=== PATIENT | female | born 1975 | race Caucasian/White ===

== ENCOUNTER 2024-05-22 10:13 | Emergency (ER) | payer MEDICAID, SELFPAY ==
[2024-05-22 10:32] VITALS: BP 141/84; PULSE 75; TEMP 36.8; O2SAT 99; BMI 24.8
[2024-05-22] MEDS: LIDOCAINE 2% JELLY 10 ML UR (10:43)
--- NOTE | 2024-05-22 11:43 | ED_ITS ---
HPI - Skin/Abscess/Foreign Bdy General Chief complaint: Skin/Abscess/Foreign Body Stated complaint: HEMORRHOID PAIN Time Seen by Provider: 05/22/24 10:38 Mode of arrival: walk-in History of Present Illness HPI narrative: The patient is coming to the ER with rectal pain that she has been having for the last few days since Sunday, he is presenting to us on which is 3 days later, mentioned that she had a history of hemorrhoids when she had her kids more than 10 years ago but never had any problems till Sunday when she started having pain She denies any history of constipation ,she had a bowel movement yesterday but it was painful Related Data Previous Rx's ?Medication ?Instructions ?Recorded hydrocortisone acetate 25 mg 25 mg NM Q12H 2 weeks #12 ea 05/22/24 rectal suppository (Anusol-HC) ibuprofen 600 mg tablet 600 mg PO TID PRN pain #20 tabs 05/22/24 lidocaine 5 % topical cream 1 applic topical QID PRN pain #30 05/22/24 (RectiCare) grams Allergies Allergy/AdvReac Type Severity Reaction Status Date / Time No Known Drug Allergies Allergy Verified 05/22/24 10:32 Review of Systems ROS Status of ROS 10 or more systems reviewed and unremark able except as noted in history and below PFSH PFSH Social History Little interest or pleasure in doing things: not at all Feeling down, depressed, or hopeless: not at all Exam Narrative Exam Narrative: Nurses notes and vital signs reviewed and patient is not hypoxic. General: Well-appearing and in no apparent distress. Skin: Warm, dry, no pallor noted. No rash. Head: Normocephalic, atraumatic. Cardiovascular: Regular Rate and Rhythm without murmur, gallop or rub. Respiratory: No accessory muscle use or respiratory distress. Lungs are clear to auscultation, no wheezing, rales or rhonchi Chest Wall: no tenderness Back: No midline thoracic or lumbar vertebral tenderness. No CVA tenderness Musculoskeletal: normal ROM, no calf or popliteal tenderness, no lower extremity edema/swelling Rectal exam: The patient have a enlarged hemorrhoid that circumferential to the rectum there is no active bleeding and there is no induration or any pus or any fluctuation. There is also no active bleeding Constitutional Vital Signs, click to edit/add: Last Vital Signs Temp 98.2 F 05/22/24 10:32 Pulse 75 05/22/24 10:32 Resp 18 05/22/24 10:32 BP 141/84 05/22/24 10:32 Pulse Ox 99 05/22/24 10:32 O2 Del Method Room Air 05/22/24 10:32 Course Vital Signs Vital signs: Vital Signs Temperature 98.2 F 05/22/24 10:32 Pulse Rate 75 05/22/24 10:32 Respiratory Rate 18 05/22/24 10:32 Blood Pressure 141/84 05/22/24 10:32 Pulse Oximetry 99 05/22/24 10:32 Oxygen Delivery Method Room Air 05/22/24 10:32 Temperature 98.2 F 05/22/24 10:32 Pulse Rate 75 05/22/24 10:32 Respiratory Rate 18 05/22/24 10:32 Blood Pressure 141/84 05/22/24 10:32 Pulse Oximetry 99 05/22/24 10:32 Oxygen Delivery Method Room Air 05/22/24 10:32 MDM - Skin/Abscess/Foreign Bdy MDM Narrative Medical decision making narrative: The patient examination is concerning for high-grade hemorrhoid and it is not typical growth I do not see any active bleeding, but there is no pus or abscess Right now local care with Anusol as well as RectiCare Lidocaine was applied initially for pain The patient also to continue using ibuprofen for pain and warm sitz bath She was referred to general surgery for possible hemorrhoidectomy due to to her high grade hemorrhoids The patient is to follow up with primary care physician in next 2-3 days or to return to the emergency department should any of the signs or symptoms worsen or new symptoms develop. The patient agrees with the following Diagnosis and Treatment plan and the patient will be discharged home. Discharge Plan Discharge Chief Complaint: Skin/Abscess/Foreign Body Clinical Impression: Hemorrhoids Patient Disposition: Home, Self-Care Time of Disposition Decision: 10:58 Condition: Good Prescriptions / Home Meds: New ibuprofen 600 mg tablet 600 mg PO TID PRN (Reason: pain) Qty: 20 0RF hydrocortisone acetate [Anusol-HC] 25 mg suppository 25 mg NM Q12H 14 Days Qty: 12 0RF lidocaine [RectiCare] 5 % cream 1 applic topical QID PRN (Reason: pain) Qty: 30 0RF Print Language: Tamazight Instructions: Hemorrhoids (DC), Sitz Bath (DC) Referrals: Lv Burr DO [Physician] - 1 week Physician,Non-Staff, MD [Primary Care Provider] - 1 week Discharge Date/Time: 05/22/24 11:06
== END 2024-05-22 11:06 | disposition home or self-care (01) ==
PROVIDERS: Emergency Provider Emergency Medicine
DX: K64.9 Unspecified hemorrhoids (principal)
CPT/HCPCS: 99283

== ENCOUNTER 2025-05-04 08:23 | Emergency (ER) | payer BC, SELFPAY ==
[2025-05-04] VITALS (10 sets, daily range): BP systolic 142–163; BP diastolic 76–89; PULSE 57–64; TEMP 36.5; O2SAT 87–98; BMI 21.3
--- NOTE | 2025-05-04 08:31 | ECG_ITS ---
[facility] Test Date: 2025-05-04 Pat Name: DELANO BUSTILLOS Department: Room: - Gender: Female Director Emergency: : 1975 Requested By: [id number] Order Number: [id number] Reading MD: VAMSHI GILES M.D. Measurements Intervals [place] Rate: 53 P: -7 MI: 158 QRS: 83 QRSD: 84 T: 53 QT: 436 QTc: 418 Interpretive Statements 1100 Sinus rhythm 3434 Septal myocardial infarction, age undetermined 9150 abnormal ECG No previous ECG available for comparison Electronically Signed On 05-05-2025 19:54:58 EST by VAMSHI GILES M.D.
--- NOTE | 2025-05-04 08:36 | CT_ITS ---
The [address] [address] Patient Name: DELANO BUSTILLOS MRN: [id number] date: 1975 Sex: F Assigned Patient Location: ER Current Patient Location: ED.MAIN Accession/Order Number: [id number] Exam Date: 05/04/2025 09:18 Report Date: 05/04/2025 09:48 At the request of: KAMERON MANN MD Procedure: CT head/brain wo con CT BRAIN WITHOUT CONTRAST: CLINICAL HISTORY: headache and pressure at the back of the head COMPARISON: None TECHNIQUE: Contiguous axial unenhanced images were obtained through the brain. This CT exam was performed using one or more following dose reduction techniques: Automated exposure control, adjustment of the mA and/or kV according to patient size, or use of iterative reconstruction technique. FINDINGS: The ventricles are normal in size and position. There are no areas of abnormal attenuation. There is no hemorrhage, mass effect or extra-axial collections. There is minor maxillary mucosal thickening. The remaining imaged paranasal sinuses and mastoid air cells are clear. CT/CT head/brain wo con IMPRESSION: NO ACUTE INTRACRANIAL ABNORMALITY. Impression dictated by: Kaley Ulloa M.D. 05/04/2025 9:48 AM Dictation Location: [place] [address] Electronically authenticated by: [id number] Y Date: 05/04/2025 09:48
--- NOTE | 2025-05-04 08:42 | ED.GENADUL1 ---
HPI HPI - General Adult General Chief complaint: Headache Stated complaint: HEAD PRESSURE, VOMITING Time Seen by Provider: 05/04/25 08:31 Source: patient Mode of arrival: walk-in Limitations: no limitations History of Present Illness HPI narrative: The patient is a 50 years old female is coming to the ER with a headache in the back of her head for the last 5 days, she mentioned that she does not usually get headache and she has been using Tylenol for pain with no effect, last night she had some nausea and vomiting 1 time, patient denies any blurry vision no double vision no weakness numbness or any tingling and there is no imbalance when walking The patient does have a history of smoking cigarettes she smokes around a pack of cigarette daily and she denies any history of hypertension Patient denies any other concerns she works as a production welder The patient noticed point of tenderness in the scalp at the occipital area and that where the headache started Related Data Previous Rx's ?Medication ?Instructions ?Recorded diclofenac sodium 75 mg 75 mg PO BID PRN pain #20 tabs 05/04/25 tablet,delayed release orphenadrine citrate 100 mg 100 mg PO BID PRN muscle spasm #20 05/04/25 tablet,extended release tabs Allergies Allergy/AdvReac Type Severity Reaction Status Date / Time No Known Drug Allergies Allergy Verified 05/22/24 10:32 Opioid HPI Opioid Management Most Recent Opioid Data: Last Pain Scale 7 Today, 08:47 Last JUL Pain Assessment Today, 08:47 Review of Systems ROS Status of ROS 10 or more systems reviewed and unremarkable except as noted in history and below PFSH PFSH Social History Little interest or pleasure in doing things: not at all Feeling down, depressed, or hopeless: not at all Exam Narrative Exam Narrative: Nurses notes and vital signs reviewed and patient is not hypoxic. General: Well-appearing and in no apparent distress. Skin: Warm, dry, no pallor noted. No rash. Head: Normocephalic, atraumatic. There is tenderness upon palpation of the posterior scalp mostly just above the mastoid area there is no swelling or any open wound or any signs of trauma Neck: Supple, non-tender. Eye: Pupils are equal, round and EOMI. No scleral icterus. Cardiovascular: Regular Rate and Rhythm without murmur, gallop or rub. Respiratory: No accessory muscle use or respiratory distress. Lungs are clear to auscultation, no wheezing, rales or rhonchi Neurological: A&O x4. No cranial nerve dysfunction observed. No truncal ataxia. Moves all extremities. Sensation intact. Psychiatric: Cooperative and interactive. Normal mood and affect. Constitutional Vital Signs, click to edit/add: Last Vital Signs Temp 97.7 F 05/04/25 08:26 Pulse 64 05/04/25 10:00 Resp 17 05/04/25 10:01 BP 144/86 H 05/04/25 10:01 Pulse Ox 95 05/04/25 08:30 O2 Del Method Room Air 05/04/25 08:26 Course Vital Signs Vital signs: Vital Signs Temperature 97.7 F 05/04/25 08:26 Pulse Rate 61 05/04/25 08:26 Respiratory Rate 20 05/04/25 08:26 Blood Pressure 162/89 H 05/04/25 08:26 Pulse Oximetry 98 05/04/25 08:26 Oxygen Delivery Method Room Air 05/04/25 08:26 Temperature 97.7 F 05/04/25 08:26 Pulse Rate 64 05/04/25 10:00 Respiratory Rate 17 05/04/25 10:01 Blood Pressure 144/86 H 05/04/25 10:01 Pulse Oximetry 95 05/04/25 08:30 Oxygen Delivery Method Room Air 05/04/25 08:26 Medical Decision Making [facility] Narrative Medical decision making narrative: The patient EKG showing sinus rhythm with a heart rate of [address] elevation or depression The patient CBC and chemistry as well as CT of the head showed no acute pathology Her presentation could be secondary to muscular spasm and she was instructed on hydration and after feeling better with treatment in the ER with Toradol and Compazine the patient was discharged home with Voltaren as well as Norflex with instruction to make sure that the equipment is that she wears when she is wielding is not tight on her head Also making sure that she will be stretching and will follow-up with her primary care for further evaluation The patient to follow-up with the primary care within 2 to 3 days and to come back to the ER in case of any worsening of the current symptoms or any new symptoms or concerns Lab Data Labs: Lab Results 05/04/25 Range/Units 08:42 WBC 4.9 (4.0-11.0) 10^3/uL RBC 4.69 (4.20-5.40) 10^6/uL Hgb 14.9 (12.0-16.0) g/dL Hct 43.1 (36.0-48.0) % MCV 91.9 (81.0-99.0) fL MCH 31.8 (26.7-34.0) pg MCHC 34.6 (29.9-35.2) g/dL RDW 12.5 (11.0-15.0) % Plt Count 217 (150-450) 10^3/uL MPV 9.1 L (9.5-13.5) fL Neut % (Auto) 61.1 (43.0-75.0) % Lymph % (Auto) 20.6 (20.5-60.0) % [place] % (Auto) 11.8 (1.7-12.0) % Eos % (Auto) 5.3 (0.9-7.0) % Baso % (Auto) 0.8 (0.2-2.0) % Neut # (Auto) 3.0 (1.4-6.5) 10^3/uL Lymph # (Auto) 1.0 L (1.2-3.8) 10^3/uL [place] # (Auto) 0.6 (0.3-0.8) 10^3/uL Eos # (Auto) 0.3 (0.0-0.7) 10^3/uL Baso # (Auto) 0.0 (0.0-0.1) 10^3/uL Abs Immat Gran (auto) 0.02 (0.00-0.03) 10^3/uL Imm/Tot Granulo (auto) 0.4 (0.0-0.5) % PT 10.2 (9.0-11.6) sec INR 0.97 Sodium 143 (136-145) mmol/L Potassium 4.4 (3.5-5.1) mmol/L Chloride 108 H (98-107) mmol/L Carbon Dioxide 24.8 (21.0-32.0) mmol/L Anion Gap 14.6 BUN 8.0 (7.0-18.0) mg/dL Creatinine 0.60 (0.55-1.02) mg/dL Est GFR ( Amer) >60 (>=60 mL/min/1.73m^2) Est GFR (Non-Af Amer) >60 (>=60 mL/min/1.73m^2) BUN/Creatinine Ratio 13.3 Glucose 93 (74-106) mg/dL Calcium 9.0 (8.5-10.1) mg/dL Total Bilirubin 0.3 (0.2-1.0) mg/dL AST 28 (15-37) U/L ALT 15 (14-59) U/L Alkaline Phosphatase 65 (46-116) U/L Troponin I High Sens <4.0 L (4.0-51.3) pg/mL Total Protein 7.0 (6.4-8.2) g/dL Albumin 3.7 (3.4-5.0) g/dL Globulin 3.3 g/dL Albumin/Globulin Ratio 1.1 Serum HCG, Qual Negative (NEGATIVE) Discharge Plan Discharge Chief Complaint: Headache Clinical Impression: Occipital pain, Headache Patient Disposition: Home, Self-Care Time of Disposition Decision: 10:26 Condition: Good Prescriptions / Home Meds: New diclofenac sodium 75 mg tablet,delayed release (DR/EC) 75 mg PO BID PRN (Reason: pain) Qty: 20 0RF orphenadrine citrate 100 mg tablet extended release 100 mg PO BID PRN (Reason: muscle spasm) Qty: 20 0RF Print Language: Kazakh Instructions: Acute Headache (DC), Muscle Spasm (ED) Referrals: Physician,Non-Staff, MD [Primary Care Provider] - 1 week Discharge Date/Time: 05/04/25 10:40
[2025-05-04] MEDS: KETOROLAC TROMETHAMINE 30 MG/ML VIAL IVP (08:47)
[2025-05-04] MEDS: PROCHLORPERAZINE 10 MG/2 ML VIAL IV (08:47)
[2025-05-04 08:49] LABS: Hematocrit 43.1 % (36.0-48.0); Hemoglobin 14.9 g/dL (12.0-16.0); Immature Granulocytes Abs Auto 0.02 10^3/uL (0.00-0.03); Immature Granulocytes Pct Auto 0.4 % (0.0-0.5); Lymphocytes Absolute Auto 1.0 10^3/uL (1.2-3.8); Mean Corpuscular HGB Conc 34.6 g/dL (29.9-35.2); Mean Corpuscular Hemoglobin 31.8 pg (26.7-34.0); Mean Corpuscular Volume 91.9 fL (81.0-99.0); Platelet Count 217 10^3/uL (150-450); Red Blood Count 4.69 10^6/uL (4.20-5.40); White Blood Count 4.9 10^3/uL (4.0-11.0)
[2025-05-04 09:06] LABS: INR 0.97; Prothrombin Time 10.2 sec (9.0-11.6)
[2025-05-04 09:10] LABS: Alanine Aminotransferase 15 U/L (14-59); Albumin Globulin Ratio 1.1; Albumin Level 3.7 g/dL (3.4-5.0); Alkaline Phosphatase 65 U/L (46-116); Anion Gap 14.6; Aspartate Amino Transferase 28 U/L (15-37); Blood Urea Nitrogen 8.0 mg/dL (7.0-18.0); Calcium 9.0 mg/dL (8.5-10.1); Carbon Dioxide 24.8 mmol/L (21.0-32.0); Chloride 108 mmol/L (98-107); Estimated GFR (African America >60 (>=60 mL/min/1.73m^2); Estimated GFR (Non-African Ame >60 (>=60 mL/min/1.73m^2); Globulin 3.3 g/dL; Glucose 93 mg/dL (74-106); Potassium 4.4 mmol/L (3.5-5.1); Sodium 143 mmol/L (136-145); Total Protein 7.0 g/dL (6.4-8.2)
--- OUTSIDE RECORDS SUMMARY | 2025-05-04 09:34 | XMS_ITS | CCD ---
Author Organization [facility] Care Team Providers Care Glue Drier Operator Name Role Phone ANALY, DR GARCIA Admitting Unavailable KARASIK, DR GARCIA Attending Unavailable KARASIK, DR GARCIA Consulting Unavailable WEST, DR YASH Steele Consulting Unavailable KARASIK, DR GARCIA Admitting Unavailable KARASIK, DR GARCIA Attending Unavailable KARASIK, DR GARCIA Consulting Unavailable KARASIK, DR GARCIA Consulting Unavailable KARASIK, DR GARCIA Admitting Unavailable KARASIK, DR GARCIA Attending Unavailable DICKSONPAOLA Consulting Unavailable DICKSON, PAOLA Admitting Unavailable DICKSON, PAOLA Attending Unavailable DICKSONPAOLA Consulting Unavailable KARASIK, DR GARCIA Admitting Unavailable MORRISON, DR ABDELRAHMAN Quijano Primary Care Unavailable KARASIK, DR GARCIA Attending Unavailable KARASIK, DR GARCIA Admitting Unavailable KARASIK, DR GARCIA Attending Unavailable KARASIK, DR GARCIA Consulting Unavailable KARASIK, DR GARCIA Admitting Unavailable KARASIK, DR GARCIA Attending Unavailable MORRISON, DR ABDELRAHMAN Quijano Primary Care Unavailable ASHWINGERMAN Consulting Unavailable KARASIK, DR GARCIA Admitting Unavailable MORRISON, DR ABDELRAHMAN Quijano Primary Care Unavailable KARASIK, DR GARCIA Attending Unavailable KARASIK, DR GARCIA Consulting Unavailable AGUBOSIMTAPAN Consulting Unavailable KARASIK, DR GARCIA Procedure Practitioner Unava MEG Martell Consulting Unavailable MORRISON, DR ABDELRAHMAN Quijano Primary Care Unavailable KARASIK, DR GARCIA Admitting Unavailable KARASIK, DR GARCIA Attending Unavailable KARASIK, DR GARCIA Consulting Unavailable ZIEBER, DR PAM Goodwin Consulting Unavailable KARASIK, DR GARCIA Admitting Unavailable KARASIK, DR GARCIA Attending Unavailable KARASIK, DR GARCIA Consulting Unavailable FAB COLLIER Primary Care Physician Guillermo Gonzalez Attending Unavailable Allergies Allergy ClassificationReported Allergen(s)Allergy TypeDate of OnsetReaction(s) Facility (1 source)MorphineDrug Oygnohq05-14-7695Rtv [facility] Repository (1 source)Morphine; Translations: [morphine]Drug AllergyWeal (disorder)[facility] Medications Current Medications MedicationDrug Class(es)DatesSig (Normalized)Sig (Original)hydrocortisone acetate 25 mg rectal suppository (1 source)CorticosteroidStart: 03-11-2025 End: 27-98-4518vous 25 mg rectal route twice dailyAnusol-HC 25 mg rectal suppository 25 mg = 1 supp, Rectal, BID, X 7 day(s), # 14 supp, Refills(s) 0, Pharmacy: [facility] #[id number], 159.5, cm, 03/11/25 17:54:00 EDT, Height/Length Dosing, 58.3, kg, 03/11/25 17:54:00 EDT, Weight Dosing Start Date: 03/11/25 Stop Date: 03/18/25 Status: Ordered Quantity: 14.0 Unit: supp Repeat number: 1 Indications: Residual hemorrhoidal skin tags; Body mass index [BMI] 22.0-22.9, adult; Rash and other nonspecific skin eruption;nystatin 501424 unt/ml topical cream (1 source)Polyene AntifungalStart: 03-11-2025 End: 50-47-3240yzequtbu Top 100,000 units/g Crm 15 gram 1 tamy, Topical, BID for 14 day(s), 60 gm, Refill(s) 0, apply to bilateral axilla, and external buttock, [facility] #[id number], 159.5, cm, 03/11/25 17:54:00 EDT, Height/Length Dosing, 58.3, kg, 03/11/25 17:54:00 EDT, Weight Dosing Start Date: 03/11/25 Stop Date: 03/25/25 Status: Ordered Quantity: 60.0 Unit: g Repeat number: 1 Indications: Residual hemorrhoidalskin tags; Body mass index [BMI] 22.0-22.9, adult; Rash and other nonspecific skin eruption; Problems Problem ClassificationProblemDateDocumented DateEpisodic/ChronicAbdominal pain (4 sources)Pelvic and perineal pain; Translations: [PELVIC AND PERINEAL PAIN] Onset: 65-86-7813KgmxbxorMjtopnsphx and other anemia (1 source)Anemia, unspecified; Translations: [ANEMIA UNSPECIFIED]Onset: 18-81-2711EomedautDkazhblzkdq (1 source)Residual hemorrhoidal skin tags; Translations: [Residual hemorrhoidal skin tags]Onset: 00-96-7632VqzvwwprLxjyhyuarzcti and screening for infectious disease (1 source)Encounter for screening for human papillomavirus (HPV); Translations: [ENC SCREENING HUMAN PAPILLOMAVIRUS]Onset: 05-65-9747WkakkqjsHfmnyvypapoq diseases of female pelvic organs (1 source)Female pelvic peritoneal adhesions (postinfective); Translations: [FE PELV PERITON ADHES POSTINFECTIVE]Onset: 98-20-8356IpbpfsitVkosarbiy disorders (5 sources)Excessive and frequent menstruation with regular cycle; Translations: [EXCESS FREQ MENSTRUATION W/REG CYCL]Onset: 76-71-3378MkdjpejPvsj disorders (1 source)Major depressive disorder, single episode, unspecified; Translations: [SHEBA DEPRESS D/O SINGLE EPIS UNS]Onset: 31-56-2394CvjmcssHvfpo female genital disorders (1 source)Unspecified dyspareunia; Translations: [UNSPECIFIED DYSPAREUNIA]Onset: 78-99-9564ZmugrymGkecm female genital disorders (1 source)Abnormal uterine and vaginal bleeding, unspecified; Translations: [ABNORMAL UTERINE VAGINAL BLEED UNS]Onset: 63-68-1646LpqhtcjSzvnd female genital disorders (1 source)Hypertrophy of uterus; Translations: [HYPERTROPHY OF UTERUS]Onset: 03-08-0330TknqyacxFzmyw female genital disorders (1 source)Dysplasia of cervix uteri, unspecified; Translations: [DYSPLASIA CERVIX UTERI UNSPECIFIED]Onset: 91-21-8980NghdjoazUodnv screening for suspected conditions (not mental disorders or infectious disease) (8 sources)Encounter for screening mammogram for malignant neoplasm of breast; Translations: [Encounter for screening for malignant neoplasm of cervix]Onset: 29-83-9417PqlqsrdyTwdvn skin disorders (1 source)Eruption; Translations: [Rash and other nonspecific skin eruption] Onset: 79-70-7059IwbaovmtTnvdwqoy codes; unclassified (1 source)Other specified postprocedural states; Translations: [OTH SPECIFIED POSTPROCEDURAL STATES]Onset: 20-59-7842TvztlmwpJizgrcdi codes; unclassified (1 source)Family history of malignant neoplasm of breast; Translations: [FAMILY HX MALIG NEOPLASM OF BREAST]Onset: 57-67-4783KqkjeoxxXwlntlbn codes; unclassified (1 source)Family history of malignant neoplasm of trachea, bronchus and lung; Translations: [FAM HX MALIG NEOPLSM TRACH BRON LNG]Onset: 77-33-8427Kkctfmqz Residual codes; unclassified (1 source)Family history of malignant neoplasm of other organs or systems; Translations: [FAM HX MALIG NEOPLASM OTH ORGN/SYS]Onset: 87-58-0887Hppckqrm Residual codes; unclassified (1 source)Body mass index 20-24 - normal; Translations: [Body mass index (BMI) 22.0-22.9, adult]Onset: 22-53-2967VimxewzpLwarybpo codes; unclassified (1 source)Tobacco apuw60-21-3086LwsjjwgaJuxyfyygz-swcjzro disorders (2 sources)Nicotine dependence, cigarettes, uncomplicated; Translations: [Tobacco dependence, continuous]Onset: 563542-56-0831EnlazmnMzdqegmfdlwy (1 source)CONTACT W/AND (SUSP) EXPOS COVID-19; Translations: [CONTACT W/AND (SUSP) EXPOS COVID-19]Onset: 11-22-2021 Results Test NameValueInterpretationReference RangeFacilityAmbulatory Visit Summaryon 41-15-2595Qypvssrwtd Visit SummaryAmbulatory Visit Summary BUSTILLOS DELANO M :1975 Visit Date:03/11/2025 Ambulatory Visit Instructions Your Diagnosis External hemorrhoids Skin rash BMI 22.0-22.9, adult Your Care Team Attending Physician - Carlos GLEASON, Guillermo Eller Primary Care Physician - FAB COLLIER This Is Your Medications List hydrocortisone topical (Anusol-HC 25 mg rectal suppository) nystatin topical (nystatin Top 100,000 units/g Crm 15 gram) Discharge Vitals Temperature (Oral) 36.6 ???C Heart Rate (Peripheral) 87 Respiratory Rate 18 Blood Pressure 120/86 Height 159.5 cm Height 63 in Weight 58.3 kg Weight 128.529 lb BMI 22.92 What to do next You Need to Schedule the Following Appointments Follow Up with FAB COLLIER When: Where: [address] [facility], [address] [place] [address]- Medications What How Much When Why Instructions New hydrocortisone topical (Anusol-HC 25 mg rectal suppository) 1 Suppositories By rectum 2 times aday External hemorrhoids Skin rash BMI 22.0-22.9, adult Duration: 7 Days Pickup at [facility]/pharmacy #[id number] New nystatin topical (nystatin Top 100,000 units/ g Crm 15 gram) 1 Application Topical 2 times a day External hemorrhoids Skin rash BMI 22.0-22.9, adult Duration: 14 Days apply to bilateral axilla, and external buttock Pickup at [facility]/pharmacy #[id number] [id number] [address], [place] [id number] [phone] Allergies morphine (Hives) Patient Survey You may receive a survey via text or e-mail asking about your office visit. Please share your experience with us by completing your survey. We appreciate your feedback and thank you for choosing us for your care. Education Materials Jock Itch Jock itch is an itchy rash in the groin and upper thigh area. It is a skin infection that is causedby a type of germ (fungus). The rash usually goes away in 2???3 weeks with treatment. What are the causes? This condition may be caused by: ??? Touching a fungal infection elsewhere on your body, such as athlete's foot, and then touching your groin area. ??? Sharing towels or clothing, such as socks or shoes, with someone who has a fungal infection. What increases the risk? This condition is most common in men and adolescent boys. You are also more likely to develop the condition if you: ??? Are in a hot, humid climate. ??? Wear tight-fitting clothes or wet bathing suits for a long time. ??? Play sports. ??? Are overweight. ??? Have diabetes. ??? Have a weakened body defense system (immune system). ??? Sweat a lot. What are the signs or symptoms? Symptoms of this condition include: ??? A red, pink, or brown rash in the groin area. ? There may be blisters. ? The rash may spread to your thighs, the opening between the butt (anus), and the butt. ??? Dry and scaly skin on or around the rash. ??? Itchiness. How is this treated? Treatment for this condition may include: ??? Medicine to kill the fungus (antifungal). This may be one of the following: ? Skin cream. ? Ointment. ? Powder. ? Medicine that you take by mouth. ??? Skin cream or ointment to reduce itching. ??? Lifestyle changes, such as wearing looser clothing and caring for your skin. Follow these instructions at home: Skin care ??? Use skin creams, ointments, or powders exactly as told by your doctor. ??? Wear clothes that are loose. Clothes should not rub against your groin area. Men should wear boxer shorts or loose underwear. ??? Keep your groin area clean and dry. ? Change your underwear every day. ? Change out of wet bathing suits as soon as you can. ? After bathing, use a different towel to dry your groin area. Dry the area gently and completely. ??? Avoid hot baths and showers. Hot water can make itching worse. ??? Do not scratch the area. General instructions ??? Take and apply ynmh-sfn-snperga and prescription medicines only as told by your doctor. ??? Do not share towels or clothing with other people. ??? Wash your hands often with soap and water for at least 20 seconds, especially after touching your groin area. If you cannot use soap and water, use hand bottom brusher. ??? When at the gym: ? Always wear shoes, especially in the shower and around the swimming pool. ? Keep any cuts covered. ? Clean any mats or equipment before using them. ? Shower as soon as you are done working out. ??? Keep all follow-up visits. Contact a doctor if: ??? Your rash: ? Gets worse. ? Does not get better after 2 weeks of treatment. ? Spreads. ? Comes back after treatment is done. ??? You have a fever. ??? You have new or more redness, swelling, or pain around your rash. ??? You have fluid, blood, or pus coming from your rash. Summary ??? Jock itch is an itchy rash. I (more content not included)...[facility] Medicine Office/Clinic Noteon [id number] Medicine Office/Clinic NoteFami Medicine Office/Clinic Note Chief Complaint rash bilateral arm pits, hemorroids HPI Staff 50 year old female presents with hemorrhoids, itchy onset- 4 month OTC- pep pads, Epsom salt History of Present Illness I have reviewed and verified the staff HPI to be accurate for this encounter. Portions of this record have been created with voice recognition software. Occasional wrong-word or???wjaiw-r-lnto??? substitutions may have occurred due to the inherent limitations of voice recognition software. 50 yo female presents today with cc of hemorrhoids. She states rectal itching and irritation x 4 months duration. Has been using OTC pep pads, and epsom salt baths. Patient states that she is been showering after every bowel movement. States known external hemorrhoids believes after childbirth denies any major history constipation states last bowel movement was this morning was normal for her. Patient states she tries her best to keep everything very clean states she has had itching now over the past 4 months duration which she states she feels like it is getting worse. No abdominal pain no black or tarry stools blood in the stool no dysuria hematuria urinary urgency or frequency. No history of thrombosed hemorrhoids. Denies rectal pain. States more of rectal itching, also notes a rash which started about a week ago in bilateral armpits or axilla region. 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 States the rash underneath bilateral axilla regions is itching not painful it has never weep to her seat. It is not blistering states it is thick raised slightly erythematous. She does not currently have a primary care provider. She denies any recent medication changes no recent antibiotics no new soaps lotions detergents. She has no other concerns at this time. Review of Systems PHQ Score Initial Depression Screen Score: 0 SCORE ROS negative unless otherwise stated in HPI. Physical Exam Vitals & Measurements T: 36.6 ???C(Oral) HR: 87(Peripheral) RR: 18 BP: 120/86 SpO2: 95% HT: 159.5 cm HT: 63 in WT: 58.3 kg WT: 128.529 lb BMI: 22.92 General:Well developed, well nourished, in no acute distress Eyes:not assessed Ears:not assessed Nose:not addressed Mouth:not assessed Neck:not assessed Lungs:Lung sounds are clear bilaterally. No wheezing, rhonchi, or crackles on exam. Cardio:S1, S2, regular rhythm. No murmurs, gallops, or rubs. Abdomen:not assessed : medical technician Lucille at bedside as commutator presser for patient vaginal examination. Patient has multiple large external hemorrhoids which are circumferential around the rectum region cannot visualize the rectum due to these external hemorrhoids. Otherwise patient has normal external genitalia she does have a rash which is at the top of the crease of the buttock just above the rectal area which extends on both the right and left buttock regions this is a red slightly thickened slightly scaly area concerning for a candidal versus fungal type rash most likely causing patient's itching. The external hemorrhoids are not erythematous they are not acutely tender no concern for thrombosed hemorrhoids or infectious process. Musculoskeletal:not assessed Extremity:not assessed Neurologic:not assessed Skin: Patient has a rash of bilateral axilla regions both measuring about 3 cm x 4 cm thick and slightly scaly erythematous pruritic per patient. Concern for candidal versus fungal rash. No surrounding erythema warmth or concern for cellulitis or infection no underlying induration or concern for skin abscess. Mental Status:Alert and oriented x3. Normal mood and affect Assessment/Plan I spoke with patient in regards to her external hemorrhoids. I believe that more of the what she describes as rectal itching is not coming from the hemorrhoids themselves but from the skin rash that she has which is either candidal versus fungal on examination today. Given her occupation that wouldmake sense. I discussed with patient still treating the external hemorrhoids with Anusol suppository which is a steroid in hopes to try to shrink the hemorrhoids and help with itching. In regards to the skin rash of bilateral axilla regions and also in the buttock region will cover initially with nystatin topical cream twice daily x 2 weeks duration patient understands if she is not having any imp rovement in about a week to 10 days of using that cream to contact the office back we will change it to an antifungal cream and refer to dermatology. Patient is understanding and agreement she does not currently have a PCP is encouraged to find one and schedule new patient appointment otherwise mayreturn if needed. Patient agrees and understands plan. 1. External hemorrhoids (K64.4: Residual hemorrhoidal skin tags) See above. Ordered: hydrocortisone topical, 25 mg = 1 supp, Rectal, BID, X 7 day(s), # 14 supp, Refil (more content notincluded)...[facility] HospitalComment on above:Result Comment: Electronically Signed By: Carlos GLEASON, Guillermo Eller\.br\Date and Time Signed: 03/11/2518:20 EDTBUNon 40-08-4952Nrbj nitrogen [Mass/Vol]8.0 mg/dLNormal7.0-18.0[facility] HospitalComment on above:Performed By: #### BUN, CREA #### [facility] [address] [place] [address] Dr. Ace Davalos AUTO DIFFon [id number] #0.0 103/ulNormal0.0-0.1[facility] HospitalComment on above:Performed By: #### CBC #### [facility] [address] [place] [address] Dr. Ace Hookssophils/100 WBC (Bld)0.2 %Normal0.2-2.0[facility] Comment on above:Performed By: #### CBC #### [facility] [address] [place] [address] Dr. Ace Fisher #0.0 103/ulNormal0.0-0.7The [facility] HospitalComment on above: Performed By: #### CBC #### [facility] [address] [place] [address] Dr. Ace Lyonsosinophils/100 WBC (Bld)0.0 %Critically low0.9-7.0The [facility] HospitalComment on above:Performed By: #### CBC #### [facility] [address] [place] [address] Dr. Ace Lyonsrythrocyte distribution width (RBC) [Ratio]17.1 %Critically high 11.0-15.0The [facility] HospitalComment on above:Performed By: #### CBC #### [facility] [address] [place] [address] Dr. Ace De JesusHematocrit (Bld) [Volume fraction]29.4 %Critically low36.0-48.0 The [facility] HospitalComment on above:Performed By: #### CBC #### [facility] [address] [place] [address] Dr. Ace De JesusHemoglobin (Bld) [Mass/Vol]9.0 g/dLCritically low12.0-16.0The [facility] HospitalComment on above:Performed By: #### CBC #### [facility] [address] [place] [address] Dr. Ace Longo #0.06 10e3/ulCritically high0.00-0.03[facility] Comment on above:Performed By: #### CBC #### [facility] [address] [place] [address] Dr. Ace Longo %0.5 %Normal0.0-0.5The [facility] HospitalComment on above: Performed By: #### CBC #### [facility] [address] [place] [address] Dr. Ace BunnH #1.8 103/ulNormal1.2-3.8The [facility] HospitalComment on above:Performed By: #### CBC #### [facility] [address] [place] [address] Dr. Ace Dhaliwalmphocytes/100 WBC (Bld)14.0 %Critically low20.5-60.0The [facility] HospitalComment on above:Performed By: #### CBC #### [facility] [address] [address] [address] Ace Laura DIFF REQNONormalThe [facility] HospitalComment on above: Performed By: #### CBC #### [facility] [address] [place] [address] Dr. Ace Mendoza (RBC) [Entitic mass]23.3 pgCritically low26.7-34.0The [facility] HospitalComment on above:Performed By: #### CBC #### [facility] [address] [place] [address] Dr. Ace Mendoza (RBC) [Mass/Vol]30.6 g/kTOzmvkn81.9-35.2The [facility] HospitalComment on above:Performed By: #### CBC #### [facility] [address] [place] [address] Dr. Ace Mendoza (RBC) [Entitic vol]76.2 fLCritically low81.0-99.0The [facility] HospitalComment on above:Performed By: #### CBC #### [facility] [address] [place] [address] Dr. Ace Voss #0.8 103/ulNormal0.3-0.8The [facility] HospitalComment on above:Performed By: #### CBC #### [facility] [address] [place] [address] Dr. Ace Ovallesocytes/100 WBC (Bld)6.1 %Normal1.7-12.0[facility] Comment on above:Performed By: #### CBC #### [facility] [address] [place] [address] Dr. Ace Neumann #10.3 103/ulCritically high1.4-6.5[facility] Comment on above:Performed By: #### CBC #### [facility] [address] [place] [address] Dr. Ace Palaciosutrophils/100 WBC (Bld)79.2 %Critically high43.0-75.0The [facility] HospitalComment on above:Performed By: #### CBC #### [facility] [address] [address] [address] Ace Jeffrieslet mean volume (Bld) [Entitic vol]9.5 fLNormal9.5-13.5[facility] on above:Performed By: #### CBC #### [facility] [address] [place] [address] Dr. Ace De JesusPLT247 103/unYonxms091-652Jut [facility] HospitalComasp[facility] on above: Performed By: #### CBC #### [facility] [address] [place] [address] Dr. Ace De JesusRBC3.86 106/ulCritically low4.20-5.40[facility] on above:Performed By: #### CBC #### [facility] [address] [place] [address] Dr. Ace De JesusWBC13.0 103/ulCritically high4.0-11.0The [facility] HospitalComment on above:Performed By: #### CBC #### [facility] [address] [place] [address] Dr. Ace De JesusCREATININEon [id number] [Mass/Vol]0.74 mg/dLNormal 0.55-1.02The [facility] HospitalComasp[facility] on above:Performed By: #### BUN, CREA #### [facility] [address] [place] [address] Dr. Ace LyonsGFR-AF SALVADOREAN>60Normal>=60The [facility] HospitalComasp[facility] on above:Performed By: #### BUN, CREA #### [facility] [address] [place] [address] Dr. Ace LyonsGFR-NON AF SALVADOREAN>60Normal>=60[facility] on above:Performed By: #### BUN, CREA #### [facility] [address] [place] [address] Dr. Ace De JesusPREGNANCY URon [id number], QUALNegativeNormalNEGATIVEThe [facility] HospitalComment on above:Performed By: #### TNS #### [facility] [address] [place] [address] Dr. Ace Davalos AUTO DIFFon [id number] #0.0 103/ulNormal0.0-0.1The [facility] HospitalComment on above:Performed By: #### TNS #### [facility] [address] [place] [address] Dr. Ace De JesusBasophils/100 WBC (Bld)0.5 %Normal0.2-2.0[facility] Comment on above:Performed By: #### TNS #### [facility] [address] [place] [address] Dr. Ace Fisher #0.1 103/ulNormal0.0-0.7The [facility] HospitalComment on above: Performed By: #### TNS #### [facility] [address] [place] [address] Dr. Ace Lyonsosinophils/100 WBC (Bld)1.7 %Normal0.9-7.0[facility] Comment on above:Performed By: #### TNS #### [facility] [address] [place] [address] Dr. Ace Lyonsrythrocyte distribution width (RBC) [Ratio]16.7 %Critically high 11.0-15.0The [facility] HospitalComment on above:Performed By: #### TNS #### [facility] [address] [place] [address] Dr. Ace De JesusHematocrit (Bld) [Volume fraction]37.8 %Ucrwxg83.0-48.0The [facility] HospitalComment on above:Performed By: #### TNS #### [facility] [address] [place] [address] Dr. Ace De JesusHemoglobin (Bld) [Mass/Vol]11.5 g/dLCritically low12.0-16.0The [facility] HospitalComment on above:Performed By: #### TNS #### [facility] [address] [place] [address] Dr. Ace Longo #0.02 10e3/ulNormal0.00-0.03The [facility] HospitalComment on above:Performed By: #### TNS #### [facility] [address] [place] [address] Dr. Ace Longo %0.3 %Normal0.0-0.5The [facility] HospitalComaspirus [facility] hospital on above: Performed By: #### TNS #### [facility] [address] [place] [address] Dr. Ace Hunt #2.1 103/ulNormal1.2-3.8The [facility] HospitalComment on above:Performed By: #### TNS #### [facility] [address] [place] [address] Dr. Ace Bunnhocytes/100 WBC (Bld)28.6 %Xfboqa70.5-60.0The [facility] HospitalComaspirus [facility] on above:Performed By: #### TNS #### [facility] [address] [place] [address] Dr. Ace JenkinsUAL DIFF REQNONormalThe [facility] HospitalComment on above: Performed By: #### TNS #### [facility] [address] [place] [address] Dr. Ace Mendoza (RBC) [Entitic mass]23.1 pgCritically low26.7-34.0[facility] on above:Performed By: #### TNS #### [facility] [address] [place] [address] Dr. Ace Mendoza (RBC) [Mass/Vol]30.4 g/kMCcjqyj56.9-35.2The [facility] HospitalComment on above:Performed By: #### TNS #### [facility] [address] [place] [address] Dr. Ace Mendoza (RBC) [Entitic vol]75.9 fLCritically low81.0-99.0The [facility] HospitalComment on above:Performed By: #### TNS #### [facility] [address] [address] [address] Ace Voss #0.5 103/ulNormal0.3-0.8The [facility] HospitalComment on above:Performed By: #### TNS #### [facility] [address] [place] [address] Dr. Ace Ovallesocytes/100 WBC (Bld)6.7 %Normal1.7-12.0[facility] Comment on above:Performed By: #### TNS #### [facility] [address] [place] [address] Dr. Ace Neumann #4.6 103/ulNormal1.4-6.5The [facility] HospitalComment on above:Performed By: #### TNS #### [facility] [address] [place] [address] Dr. Ace Palaciosutrophils/100 WBC (Bld)62.2 %Vmikcj51.0-75.0The [facility] HospitalComment on above:Performed By: #### TNS #### [facility] [address] [place] [address] Dr. Ace Zhao mean volume (Bld) [Entitic vol]8.6 fLCritically low 9.5-13.5The [facility] HospitalComment on above:Performed By: #### TNS #### [facility] [address] [place] [address] Dr. Ace De JesusPLT253 103/nxJkjahq500-721Kfz [facility] HospitalComment on above: Performed By: #### TNS #### [facility] [address] [place] [address] Dr. Ace De JesusRBC4.98 106/ulNormal4.20-5.40The [facility] HospitalComment on above:Performed By: #### TNS #### [facility] [address] [place] [address] Dr. Ace De JesusWBC7.5 103/ulNormal4.0-11.0The [facility] HospitalComment on above: Performed By: #### TNS #### [facility] [address] [place] [address] Dr. Ace Lee-19 PCR (CVDTB)on 44-30-0869RNIF-CoV-2 (COVID-19) RNA CANDIE+probe Ql (Unsp spec)Not detectedNormalNOT DETECTEDTwin City Hospital Comment on above:Result Comment: This test is not yet approved or cleared by the [place] FDA. When there are no FDA-approved or cleared tests available, and other criteria are met, FDA can make tests available under an emergency access mechanism called an Emergency Use Authorization (EUA). The EUA for this test is supported by the [place] of Health and Human Service's (HHS's) declaration that circumstances exist to justify the emergency use of in vitro diagnostics for the detection and/or diagnosis of the virus that causes COVID- 19. This EUA will remain in effect (meaning this test can be used) for the duration of the COVID-19 declaration justifying emergency of IVDs, unless it is terminated or revoked by FDA (after which the test may no longer be used). When diagnostic testing is negative, the possibility of a false negative should be considered in the context of a patient's recent exposures and the presence of clinical signs and symptoms consistent with SARS-CoV-2.Performed By: #### CVDTBH #### [facility] [address] [place] [address] Dr. Ace De JesusTYPE AND SCREENon 19-81-2961LLWG AND SCREENNegativeNormalThe [facility] HospitalComment on above:Performed By: #### TNS #### [facility] [address] [place] [address] Dr. Ace De JesusPREGNANCY URon 02-81-4873MKZZWMMEX, QUALNegativeNormalNEGATIVETwin City HospitalComment on above:Performed By: #### PREGU #### [facility] [address] [place] [address] Dr. Ace Lee-19 PCR (CVDTB)on 29-79-3807FWNB-CoV-2 (COVID-19) RNA CANDIE+probe Ql (Unsp spec)Not detectedNormalNOT DETECTEDTwin City Hospital Comment on above:Result Comment: When diagnostic testing is negative, the possibility of a false negative should be considered in the context of a patient's recent exposures and the presence of clinical signs and symptoms consistent with SARS-CoV-2. This test is not yet approved or cleared by the [place] FDA. When there are no FDA-approved or cleared tests available, and other criteria are met, FDA can make tests available under an emergency access mechanism called an Emergency Use Authorization (EUA). The EUA for this test is supported by the [place] of Health and Human Service's declaration that circumstances exist to justify the emergency use of in vitro diagnostics for the detection and/or diagnosis of the virus that causes COVID-19. This EUA will remain in effect for the duration of the COVID-19 declaration justifying emergency of IVDs, unless it is terminated or revoked by the FDA (after which the test may no longer be used).Performed By: #### CVDTBH #### [facility] [address] [place] [address] Dr. Ace De JesusMG MAMM SCREEN 3D JOELLE CADon [id number] MAMM SCREEN 3D JOELLE CAD Patient: DELANO BUSTILLOS Exam Date: 09/22/2021 : 1975 Gender:F Ordering : DR RADHA BECKFORD . Admission #: [id number] Family : Order #: [id number] CLICK HERE TO VIEW EXAM RADIOLOGY REPORT PROCEDURE: MAMMOGRAM SCREENING 3D BILATERAL CAD COMPARISON: MG MAMM JOELLE DIAG W CAD DIG, 11/05/2014. MG MAMM JOELLE DIAG W CAD DIG, 12/20/2015. INDICATIONS: Screening mammography Calculator Name NCI Breast Cancer Risk Assessment Tool 5 Year Breast Cancer Risk 0.70% Lifetime Breast Cancer Risk 8.70% Personal Breast Cancer No Personal Ovarian Cancer No Treatments None Family Cancers Grandfather-paternal with lung cancer at age 42; Grandfather-maternal with bone cancer at age 76; Grandmother-maternal with lung cancer at age 73; Aunt-paternal with breast cancer at age 45; Aunt-paternal with breast cancer at age 45. LOCATION: [facility] BREAST COMPOSITION: Extremely dense, which lowers the sensitivity of mammography. FINDINGS: DIAGNOSTIC CATEGORY 2--BENIGN FINDING: RIGHT BREAST: No significant suspicious finding. LEFT BREAST: No significant suspicious finding. RECOMMENDATIONS: ROUTINE MAMMOGRAM AND CLINICAL EVALUATION IN 12 MONTHS. PLEASE NOTE: A NORMAL MAMMOGRAM DOES NOT EXCLUDE THE POSSIBILITY OF BREAST CANCER. A CLINICALLY SUSPICIOUS PALPABLE LUMP SHOULD BE BIOPSIED. Dictated by: Yash Strickland MD on 09/22/2021 at 15:43 Approved by: Yash Strickland MD on 09/22/2021 at 15:48No[facility] AUTO DIFFon 47-27-1320JJIF #0.0 103/ulNormal0.0-0.1The [facility] HospitalComment on above:Performed By: #### TNS #### [facility] [address] [place] [address] Dr. Ace De JesusBasophils/100 WBC (Bld)0.5 %Normal0.2-2.0[facility] Comment on above:Performed By: #### TNS #### [facility] [address] [place] [address] Dr. Ace Fisher #0.2 103/ulNormal0.0-0.7The [facility] HospitalComment on above: Performed By: #### TNS #### [facility] [address] [place] [address] Dr. Ace Lyonsosinophils/100 WBC (Bld)2.5 %Normal0.9-7.0[facility] Comment on above:Performed By: #### TNS #### [facility] [address] [place] [address] Dr. Ace Lyonsrythrocyte distribution width (RBC) [Ratio]15.6 %Critically high 11.0-15.0[facility] HospitalComment on above:Performed By: #### TNS #### [facility] [address] [place] [address] Dr. Ace De JesusHematocrit (Bld) [Volume fraction]37.6 %Vadxfw38.0-48.0The [facility] HospitalComment on above:Performed By: #### TNS #### [facility] [address] [place] [address] Dr. Ace De JesusHemoglobin (Bld) [Mass/Vol]11.6 g/dLCritically low12.0-16.0The [facility] HospitalComment on above:Performed By: #### TNS #### [facility] [address] [place] [address] Dr. Ace Longo #0.02 10e3/ulNormal0.00-0.03The [facility] HospitalComment on above:Performed By: #### TNS #### [facility] [address] [place] [address] Dr. Ace Longo %0.2 %Normal0.0-0.5The [facility] HospitalComment on above: Performed By: #### TNS #### [facility] [address] [place] [address] Dr. Ace Hunt #2.6 103/ulNormal1.2-3.8The [facility] HospitalComment on above:Performed By: #### TNS #### [facility] [address] [place] [address] Dr. Ace Bunnhocytes/100 WBC (Bld)31.7 %Mzovzv64.5-60.0The [facility] HospitalComment on above:Performed By: #### TNS #### [facility] [address] [place] [address] Dr. Ace JenkinsUAL DIFF REQNONormalThe [facility] HospitalComment on above: Performed By: #### TNS #### [facility] [address] [place] [address] Dr. Ace Mendoza (RBC) [Entitic mass]24.0 pgCritically low26.7-34.0The [facility] HospitalComment on above:Performed By: #### TNS #### [facility] [address] [place] [address] Dr. Ace Mendoza (RBC) [Mass/Vol]30.9 g/dJGeojoq53.9-35.2The [facility] HospitalComment on above:Performed By: #### TNS #### [facility] [address] [place] [address] Dr. Yilan ChangMCV (RBC) [Entitic vol]77.7 fLCritically low81.0-99.0The [facility] HospitalComment on above:Performed By: #### TNS #### [facility] [address] [place] [address] Dr. Ace Voss #0.6 103/ulNormal0.3-0.8The [facility] HospitalComment on above:Performed By: #### TNS #### [facility] [address] [place] [address] Dr. Ace Ovallesocytes/100 WBC (Bld)7.1 %Normal1.7-12.0[facility] Comment on above:Performed By: #### TNS #### [facility] [address] [place] [address] Dr. Ace Neumann #4.7 103/ulNormal1.4-6.5The [facility] HospitalComment on above:Performed By: #### TNS #### [facility] [address] [place] [address] Dr. Ace Palaciosutrophils/100 WBC (Bld)58.0 %Sfehql06.0-75.0The [facility] HospitalComment on above:Performed By: #### TNS #### [facility] [address] [place] [address] Dr. Ace Zhao mean volume (Bld) [Entitic vol]8.8 fLCritically low 9.5-13.5The [facility] HospitalComment on above:Performed By: #### TNS #### [facility] [address] [place] [address] Dr. Ace De JesusPLT274 103/hsOhfrrc652-369Mlo [facility] HospitalComment on above: Performed By: #### TNS #### [facility] [address] [place] [address] Dr. Ace De JesusRBC4.84 106/ulNormal4.20-5.40The [facility] HospitalComment on above:Performed By: #### TNS #### [facility] [address] [place] [address] Dr. Ace De JesusWBC8.1 103/ulNormal4.0-11.0[facility] HospitalComment on above: Performed By: #### TNS #### [facility] [address] [place] [address] Dr. Ace De JesusCovid-19 PCR (CVDTB)on 50-19-1171CHHP-CoV-2 (COVID-19) RNA CANDIE+probe Ql (Unsp spec)Not detectedNormalNOT DETECTEDTwin City Hospital Comment on above:Result Comment: This test is not yet approved or cleared by the [place] FDA. When there are no FDA-approved or cleared tests available, and other criteria are met, FDA can make tests available under an emergency access mechanism called an Emergency Use Authorization (EUA). The EUA for this test is supported by the [place] of Health and Human Service's (HHS's) declaration that circumstances exist to justify the emergency use of in vitro diagnostics for the detection and/or diagnosis of the virus that causes COVID- 19. This EUA will remain in effect (meaning this test can be used) for the duration of the COVID-19 declaration justifying emergency of IVDs, unless it is terminated or revoked by FDA (after which the test may no longer be used). When diagnostic testing is negative, the possibility of a false negative should be considered in the context of a patient's recent exposures and the presence of clinical signs and symptoms consistent with SARS-CoV-2.Performed By: #### CVDTBH #### [facility] [address] [place] [address] Dr. Ace Calle ACOG PANEL 2: 30 to 65on 09-20-2021..NormalThe [facility] HospitalComment on above:Result Comment: Performed at: WBPerformed By: #### [id number] #### [facility] [address] [place] [address] Dr. Ace Shah Gdln ACOG Mtkqgaa93-56XgqdaoWlrAvita Health System Galion HospitalComment on above:Performed By: #### [id number] #### [facility] [address] [place] [address] Dr. Ace De JesusDIAGNOSIS:CommentAbSelect Medical Specialty Hospital - CincinnatiComaspirus iron river hospital on above: Result Comment: EPITHELIAL CELL ABNORMALITY. ATYPICAL SQUAMOUS CELLS OF UNDETERMINED SIGNIFICANCE (ASC-US). Performed at: WBPerformed By: #### [id number] #### [facility] [address] [place] [address] Dr. Bello ChangElectronically signed by:[facility] Comment on above:Result Comment: Betina Nichols MD, Pathologist Performed at: WBPerformed By: #### [id number] #### [facility] [address] [place] [address] Dr. Ace De JesusHPV AptimaNegativeNormalNegativeThe [facility] HospitalComment on above:Result Comment: This nucleic acid amplification test detects fourteen high-risk HPV types (16,18,31,33,35,39,45,51,52,56,58,59,66,68) without differentiation. Performed at: =GPerformed By: #### [id number] #### [facility] [address] [place] [address] Dr. Ace De JesusMethodology:[facility] Cross HospitalComaspirus [facility] river hospital on above: Result Comment: This liquid based ThinPrep(R) pap test was screened with the use of an image guided system. Performed at: WBPerformed By: #### [id number] [address] [address] Dr[address] Ace De JesusNote:CommentClermont County HospitalComaspirus iron river hospital on above:Result Comment: The Pap smear is a screening test designed to aid in the detection of premalignant and malignant conditions of the uterine cervix. It is not a diagnostic procedure and should not be used as the sole means of detecting cervical cancer. Both false-positive and false-negative reports do occur. . Performed at: WBPerformed By: #### [id number] #### [facility] [address] [place] [address] Dr. Ace De JesusPathologist Provided KUQ24BlismueUtvpklEawSt. Rita's Hospital Comment on above:Result Comment: R87.610 Performed at: WBPerformed By: #### [id number] #### [facility] [address] [address] [address] Ace De JesusPerformed by:CommentNoGalion Hospital on above: Result Comment: Shanti Sanford, Supervisory Vice President Of Advertising (ASCP) Performed at: Performed By: #### [id number] #### [facility] [address] [address] [address] Ace De JesusRecommendation:CommentAbSouthview Medical Center on above:Result Comment: Suggest follow up as clinically appropriate. Performed at: Performed By: #### [id number] #### [facility] [address] [address] [address] Ace De JesusSpecimen adequacy:CommentOhioHealth Berger Hospital on above:Result Comment: Satisfactory for evaluation. Endocervical and/or squamous metaplastic cells (endocervical component) are present. Performed at: [facility] Centerformed By: #### [id number] #### [facility] [address] [address] [address] Ace De JessuUS PELVIS AND TRANSVAGon 77-59-7370KT PELVIS AND TRANSVAG EXAMINATION: US PELVIS AND TRANSVAG HISTORY: Excessive and frequent menstruation , back pain COMPARISON: No relevant comparison available. TECHNIQUE: Transabdominal and transvaginal sonographic examination. FINDINGS: UTERUS: Slightly heterogeneous echotexture; nonspecific. Uterus size: 10.2 x 6.1 x 3.4 cm ENDOMETRIUM: Normal homogeneous appearance. Endometrial thickness: 10 mm RIGHT OVARY: Normal size and appearance. Duplex Doppler demonstrates normal waveform and flow; resistive index 0.6. Ovary size: 3.0 x 2.5 x 2.3 cm LEFT OVARY: Normal size and appearance. Duplex Doppler demonstrates normal waveform and flow; resistive index 0.76. Ovary size: 2.3 x 1.2 x 1.2 cm CUL-DE-SAC: Unremarkable. No significant free fluid. BLADDER: Unremarkable. OTHER: None. IMPRESSION: 1. No suspicious findings to account for patient's symptoms. Electronically authenticated by: PAM ROTHMAN Date: 2021-09-08 15:27[facility] Encounters Encounter DateEncounter TypeCare ProviderFacilityStart: 03-11-2025 End: 26-87-2115whcddwpameGdmhv MJeannie GonzaelzFacility:PANCHO Millertart: 03-11-2025 End: 47-19-8911Gpwkdwj encounter procedureGuillermo Gutierrezpsey [phone]-WvohnThe [facility] Start: 87-97-9704Banpioaxl for preprocedural laboratory examinationDR RADHASILVA [facility] HospitalStart: 11-14-2021 End: 49-17-5548Oyqpfawahm and management of inpatientDR RADHASILVA BECKFORD Facility:I1Uxhol: 11-10-2021 End: 04-87-9560ikfnugevfjWB RADHA BECKFORDFacility:Z2Hsrcs: 11-10-2021 End: 62-63-3812Lpcunpmqq for preprocedural laboratory examinationDR RADHA VELAZCOGrayFacility:P2Iknpa: 44-72-4041Htpsvqtoc for other preprocedural examination RADHA [facility] HospitalStart: 10-28-2021 End: 10-29-6695anzgyodjmtEG RADHA BECKFORDFacility:N6Opfrp: 10-28-2021 End: 28-41-2480Yvnmdijoo for other preprocedural examination RADHA BECKFORD Facility:Y1Lenvj: 10-10-2021 End: 67-84-0338xhpjrksztuJK RADHA BECKFORDFacility:I0Yylhx: 10-06-2021 End: 65-01-0453txpxauydzxUDEZHJ SNYDERFacility:N0Hjkqg: 09-22-2021 End: 14-77-1870glorubmlgeSR RADHA BECKFORDFacility:Y4Jmvfo: 09-21-2021 End: 63-46-7609ucykkncfneYW RADHA BECKFORDFacility:K2Hwllw: 09-14-2021 End: 84-25-8065pajbbckxqcHR RADHA VELAZCOKFacility:U7Pqmxu: 09-08-2021 End: 77-81-5734kbcxxrxpgqCJ ABDELRAHMAN MORRISONFacility:H1 Procedures DateProcedureProcedure DetailPerforming ClinicianStart: 71-57-8627Vvstsudi of Right Ovary, Via Natural or Artificial OpeningDR RADHA KARASIKStart: 24-44-4715Eeylintfg of Bilateral Fallopian Tubes, Via Natural or Artificial OpeningDR RADHA KARASIKStart: 64-57-3389Mzojmbqgf of Uterus, Via Natural or Artificial OpeningDR RADHA KARASIK Payers DatePayer CategoryPayerPolicy [id number] Health Insurance [id number] [id number] 2.16840.1.787789.3.57[id number] 2.840.1.951938.3.57[id number] 2.16840.1.598573.3.57[id number] 2.840.1.995173.3.57[id number] 2.16840.1.622287.3.57[id number] 2.16840.1.822224.3.57[id number] 2.16.840.1.886810.3.57[id number] 2.16840.1.755934.3.57[id number] 2.16840.1.785896.3.57[id number] 2.16840.1.719889.3.57[id number]-rzi Social History DateTypeDetailFacilityStart: 41-40-2347Aecgxdi smoking statusHeavy tobacco smoker (finding)[facility] Convenient CareTobacco smoking statusNeverThe [facility] Convenient CareSexual OrientationSelect Medical [facility] Clinic [facility] Sex Assigned At BirthFeSelect Medical Specialty Hospital - [facility] Northtart: 26-22-4205NtjTglfpf (finding)[facility] Discharge instructions 03-11-2025 Note Date & VefqYbrmNgbjsjqy50-44-3885 Hospital Discharge instructions Patient Education 03/11/2025 18:20:14 Jock Itch, Ycng-jv-Psos Jock Itch Jock itch is an itchy rash in the groin and upper thigh area. It is a skin infection that is causedby a type of germ (fungus). The rash usually goes away in 2 3 weeks with treatment. What are the causes? This condition may be caused by: Touching a fungal infection elsewhere on your body, such as athlete's foot, and then touching your groin area. Sharing towels or clothing, such as socks or shoes, with someone who has a fungal infection. What increases the risk? This condition is most common in men and adolescent boys. You are also more likely to develop the condition if you: Are in a hot, humid climate. Wear tight-fitting clothes or wet bathing suits for a long time. Play sports. Are overweight. Have diabetes. Have a weakened body defense system (immune system). Sweat a lot. What are the signs or symptoms? Symptoms of this condition include: A red, pink, or brown rash in the groin area. ?There may be blisters. ?The rash may spread to your thighs, the opening between the butt (anus), and the butt. Dry and scaly skin on or around the rash. Itchiness. How is this treated? Treatment for this condition may include: Medicine to kill the fungus (antifungal). This may be one of the following: ?Skin cream. ?Ointment. ?Powder. ?Medicine that you take by mouth. Skin cream or ointment to reduce itching. Lifestyle changes, such as wearing looser clothing and caring for your skin. Follow these instructions at home: Skin care Use skin creams, ointments, or powders exactly as told by your doctor. Wear clothes that are loose. Clothes should not rub against your groin area. Men should wear boxer shorts or loose underwear. Keep your groin area clean and dry. ?Change your underwear every day. ?Change out of wet bathing suits as soon as you can. ?After bathing, use a different towel to dry your groin area. Dry the area gently and completely. Avoid hot baths and showers. Hot water can make itching worse. Do not scratch the area. General instructions Take and apply lgqi-ekc-ycvbnaa and prescription medicines only as told by your doctor. Do not share towels or clothing with other people. Wash your hands often with soap and water for at least 20 seconds, especially after touching your groin area. If you cannot use soap and water, use hand bottom brusher. When at the gym: ?Always wear shoes, especially in the shower and around the swimming pool. ?Keep any cuts covered. ?Clean any mats or equipment before using them. ?Shower as soon as you are done working out. Keep all follow-up visits. Contact a doctor if: Your rash: ? Gets worse. ?Does not get better after 2 weeks of treatment. ?Spreads. ?Comes back after treatment is done. You have a fever. You have new or more redness, swelling, or pain around your rash. You have fluid, blood, or pus coming from your rash. Summary Jock itch is an itchy rash. It affects the groin and upper thigh area. Jock itch usually goes away in 2 3 weeks with treatment. Keep your groin area clean and dry. This information is not intended to replace advice given to you by your health care provider. Make sure you discuss any questions you have with your health care provider. Document Revised: 08/02/2021 Document Reviewed: 08/02/2021 [employer] Patient Education 2023 [employer]. 03/11/2025 18:19:59 Skin Yeast Infection Skin Yeast Infection A skin yeast infection is a condition in which there is an overgrowth of yeast (Lori) that normally lives on the skin. This condition usually occurs in areas of the skin that are constantly warm and moist, such as the skin under the breasts or armpits, or in the groin and other body folds. What are the causes? This condition is caused by a change in the normal balance of the yeast that live on the skin. What increases the risk? You are more likely to develop this condition if you: Are obese. Are . Are 65 years of age or older. Wear tight clothing. Have any of the following conditions: ?Diabetes. ?Malnutrition. ?A weak body defense system (immune system). Take medicines such as: ? control pills. ?Antibiotics. ?Steroid medicines. What are the signs or symptoms? The most common symptom of this condition is itchiness in the affected area. Other symptoms include: A red, swollen area of the skin. Bumps on the skin. How is this diagnosed? This condition is diagnosed with a medical history and physical exam. Your health care provider maycheck for yeast by taking scrapings of the skin to be viewed under a microscope. How is this treated? This condition is treated with medicine. Medicines may be prescribed or available over the counter.The medicines may be: Taken by mouth (orally). Applied as a cream or powder to your skin. Follow these instructions at home: Take or apply fmtv-tlw-knjixre and prescription medicines only as told by your health care provider. Maintain a healthy weight. If you need help losing weight, talk with your health care provider. Keep your skin clean and dry. Wear loose-fitting clothing. If you have diabetes, keep your blood sugar under control. Keep all follow-up visits. This is important. Contact a health care provider if: Your symptoms go away and then come back. Your symptoms do not get better with treatment. Your symptoms get worse. Your rash spreads. You have a fever or chills. You have new symptoms. You have new warmth or redness of your skin. Your rash is painful or bleeding. Summary A skin yeast infection is a condition in which there is an overgrowth of yeast (Lori) that normally lives on the skin. Take or apply hkma-hry-uoegcsc and prescription medicines only as told by your health care provider. Keep your skin clean and dry. Contact a health care provider if your symptoms do not get better with treatment. This information is not intended to replace advice given to you by your health care provider. Make sure you discuss any questions you have with your health care provider. Document Revised: 08/02/2021 Document Reviewed: 08/02/2021 [employer] Patient Education 2023 [employer]. 03/11/2025 18:19:52 Hemorrhoids, Kapw-nl-Dqhv Hemorrhoids Hemorrhoids are swollen veins that may form: In the butt (rectum). These are called internal hemorrhoids. Around the opening of the butt (anus). These are called external hemorrhoids. Most hemorrhoids do not cause very bad problems. They often get better with changes to your lifestyle and what you eat. What are the causes? Having trouble pooping (constipation) or watery poop (diarrhea). Pushing too hard when you poop. . Being very overweight (obese). Sitting for too long. Riding a bike for a long time. Heavy lifting or other things that take a lot of effort. Anal sex. What are the signs or symptoms? Pain. Itching or soreness in the butt. Bleeding from the butt. Leaking poop. Swelling. One or more lumps around the opening of your butt. How is this treated? In most cases, hemorrhoids can be treated at home. You may be told to: Change what you eat. Make changes to your lifestyle. If these treatments do not help, you may need to have a procedure done. Your doctor may need to: Place rubber bands at the bottom of the hemorrhoids to make them fall off. Put medicine into the hemorrhoids to shrink them. Shine a type of light on the hemorrhoids to cause them to fall off. Do surgery to get rid of the hemorrhoids. Follow these instructions at home: Medicines Take fgrk-myz-zizdxyg and prescription medicines only as told by your doctor. Use creams with medicine in them or medicines that you put in your butt as told by your doctor. Eating and drinking Eat foods that have a lot of fiber in them. These include whole grains, beans, nuts, fruits, and vegetables. Ask your doctor about taking products that have fiber added to them (fibersupplements). Take in less fat. You can do this by: ?Eating low-fat dairy products. ?Eating less red meat. ?Staying away from processed foods. Drink enough fluid to keep your pee (urine) pale yellow. Managing pain and swelling Take a warm-water bath (sitz bath) for 20 minutes to ease pain. Do this 3 4 times a day. You may dothis in a bathtub. You may also use a portable sitz bath that fits over the toilet. If told, put ice on the painful area. It may help to use ice between your warm baths. ?Put ice in a plastic bag. ?Place a towel between your skin and the bag. ?Leave the ice on for 20 minutes, 2 3 times a day. If your skin turns bright red, take off the ice right away to prevent skin damage. The risk of damage is higher if you cannot feel pain, heat, or cold. General instructions Exercise. Ask your doctor how much and what kind of exercise is best for you. Go to the bathroom when you need to poop. Do not wait. Try not to push too hard when you poop. Keep your butt dry and clean. Use wet toilet paper or moist towelettes after you poop. Do not sit on the toilet for a long time. Contact a doctor if: You have pain and swelling that do not get better with treatment. You have trouble pooping. You cannot poop. You have pain or swelling outside the area of the hemorrhoids. Get help right away if: You have bleeding from the butt that will not stop. This information is not intended to replace advice given to you by your health care provider. Make sure you discuss any questions you have with your health care provider. Document Revised: 01/24/2023 Document Reviewed: 01/24/2023 [employer] Patient Education 2023 [employer]. Follow Up Care 03/11/2025 09:06:54 With:FAB COLLIER Address: [address] [place] [address], [address] [place] [address]- When: Unknown [facility] Clinical Note 03-11-2025 Note Date & [id number] NotePatient Education Gastroenterology Hemorrhoids Hemorrhoids are swollen veins that may form: ??? In the butt (rectum). These are called internal hemorrhoids. ??? Around the opening of the butt (anus). These are called external hemorrhoids. Most hemorrhoids do not cause very bad problems. They often get better with changes to your lifestyle and what you eat. What are the causes? Having trouble pooping (constipation) or watery poop (diarrhea). ??? Pushing too hard when you poop. ??? . ??? Being very overweight (obese). ??? Sitting for too long. ??? Riding a bike for a long time. ??? Heavy lifting or other things that take a lot of effort. ??? Anal sex. What are the signs or symptoms? Pain. ??? Itching or soreness in the butt. ??? Bleeding from the butt. ??? Leaking poop. ??? Swelling. ??? One or more lumps around the opening of your butt. How is this treated? In most cases, hemorrhoids can be treated at home. You may be told to: ??? Change what you eat. ??? Make changes to your lifestyle. If these treatments do not help, you may need to have a procedure done. Your doctor may need to: ??? Place rubber bands at the bottom of the hemorrhoids to make them fall off. ??? Put medicine into the hemorrhoids to shrink them. ??? Shine a type of light on the hemorrhoids to cause them to fall off. ??? Do surgery to get rid of the hemorrhoids. Follow these instructions at home: Medicines ??? Take jisy-teu-yxmgxxp and prescription medicines only as told by your doctor. ??? Use creams with medicine in them or medicines that you put in your butt as told by your doctor. Eating and drinking ??? Eat foods that have a lot of fiber in them. These include whole grains, beans, nuts, fruits, and vegetables. ??? Ask your doctor about taking products that have fiber added to them (fibersupplements). ??? Take in less fat. You can do this by: ? Eating low-fat dairy products. ? Eating less red meat. ? Staying away from processed foods. ??? Drink enough fluid to keep your pee (urine) pale yellow. Managing pain and swelling ??? Take a warm-water bath (sitz bath) for 20 minutes to ease pain. Do this 3?4 times a day. You may do this in a bathtub. You may also use a portable sitz bath that fits over the toilet. ??? If told, put ice on the painful area. It may help to use ice between your warm baths. ? Put ice in a plastic bag. ? Place a towel between your skin and the bag. ? Leave the ice on for 20 minutes, 2?3 times a day. ??? If your skin turns bright red, take off the ice right away to prevent skin damage. The risk of damage is higher if you cannot feel pain, heat, or cold. General instructions ??? Exercise. Ask your doctor how much and what kind of exercise is best for you. ??? Go to the bathroom when you need to poop. Do not wait. ??? Try not to push too hard when you poop. ??? Keep your butt dry and clean. Use wet toilet paper or moist towelettes after you poop. ??? Do not sit on the toilet for a long time. Contact a doctor if: ??? You have pain and swelling that do not get better with treatment. ??? You have trouble pooping. ??? You cannot poop. ??? You have pain or swelling outside the area of the hemorrhoids. Get help right away if: ??? You have bleeding from the butt that will not stop. This information is not intended to replace advice given to you by your health care provider. Make sure you discuss any questions you have with your health care provider. Document Revised: 01/24/2023 Document Reviewed: 01/24/2023 [employer] Patient Education ? 2023 [employer] Infectious Disease Jock Itch Jock itch is an itchy rash in the groin and upper thigh area. It is a skin infection that is causedby a type of germ (fungus). The rash usually goes away in 2?3 weeks with treatment. What are the causes? This condition may be caused by: ??? Touching a fungal infection elsewhere on your body, such as athlete's foot, and then touching your groin area. ??? Sharing towels or clothing, such as socks or shoes, with someone who has a fungal infection. What increases the risk? This condition is most common in men and adolescent boys. You are also more likely to develop the condition if you: ??? Are in a hot, humid climate. ??? Wear tight-fitting clothes or wet bathing suits for a long time. ??? Play sports. ??? Are overweight. ??? Have diabetes. ??? Have a weakened body defense system (immune system). ??? Sweat a lot. What are the signs or symptoms? Symptoms of this condition include: ??? A red, pink, or brown rash in the groin area. ? There may be blisters. ? The rash may spread to your thighs, the opening between the butt (anus), and the butt. ??? Dry and scaly skin on or around the rash. ??? Itchiness. How is this (more content not included)...[facility] Evaluation + Plan note Note Date & TypeNoteFacilityEvaluation + Plan note No data available for this section [facility] Progress note Note Date & TypeNoteFacilityProgress note No data available for this section [facility] Summary Purpose Family History No Family History Records Found No data available for this section No Family History Records Found Advance Directives No Advanced Directives Records FoundNo Advanced Directives Records Found Additional Source Comments INFORMATION SOURCE (unrecogn ized section and content) DATE CREATED AUTHOR 12/02/2021 [facility] DATE CREATED AUTHOR AUTHOR'S ORGANIZ ATION 03/13/2025 [facility] Patient Care team informatio n (unrecognized section and content) Personnel Name: FAB COLLIER Address: [address] [place] [address], [address] [place] [address]- [employer]: FOR RECORDS PERTAINING TO PATIENTS WHO ARE OR HAVE BEEN ENROLLED IN A CHEMICAL DEPENDENCY/SUBSTANCEABUSE PROGRAM, SOME INFORMATION MAY BE OMITTED. This clinical summary was aggregated from multiple sources. Caution should be exercised in using it in the provision of clinical care. This summary normalizes information from multiple sources, and as a consequence, information in this document may materially change the coding, format and clinical context of patient data. In addition, data may be omitted in some cases. CLINICAL DECISIONS SHOULD BE BASED ON THE PRIMARY CLINICAL RECORDS. [facility] provides no warranty or guarantee of the accuracy or completeness of information in this document.
[2025-05-04] MEDS: ORPHENADRINE 60 MG/2 ML VIAL IV (10:32)
== END 2025-05-04 10:40 | disposition home or self-care (01) ==
PROVIDERS: Emergency Provider Emergency Medicine
DX: R51.9 Headache, unspecified (principal); F17.210 Nicotine dependence, cigarettes, uncomplicated
CPT/HCPCS: 36415; 70450; 80053; 84484; 84703; 85025; 85610; 93005; 96374; 96375; 99284; 99285; J0780; J1885; J2360